=== PATIENT | female | born 1960 | race Two or more races ===

== ENCOUNTER 2020-07-30 23:17 | Emergency (ER) | payer MEDICAID, OTHER ==
[~2020-07-30] VITALS: Ht 162.6 cm; Wt 99.8 kg
[2020-07-30] MEDS ORDERED: KETOROLAC TROMETHAMINE INJ 60 MG/2 ML VIAL IM ONE (23:30)
[2020-07-30] MEDS ORDERED: HYDROMORPHONE 1 MG/1 ML DISP.SYRIN IM ONE (23:30)
--- NOTE | 2020-07-30 23:31 | NUR ---
PATIENT CAME TO ER BED 9 C/O LEFT FOOT PAIN. PATIENT STATES THAT SHE HAS HAD THIS PAIN FOR MONTHS. PATIENT STATES THAT SHE CURRENTLY TAKES NORCO5-MG, BUT IT DOES NOT HELP HER. PATIENT IS ON HOME OXYGEN OF 2L DUE TO HX OF COVID. PATIENT IS AAOX4. NO SOB. BREATHING EVENLY AND UNLABORED ON 2L. CONNECTED TO THE MONITOR.
[2020-07-30] MEDS ORDERED: KETOROLAC TROMETHAMINE INJ 30 MG/ML VIAL ONE (23:36)
[2020-07-30] MEDS ORDERED: HYDROMORPHONE 1 MG/1 ML DISP.SYRIN ONE (23:37)
--- NOTE | 2020-07-31 00:48 | NUR ---
CALLED [facility] #[id number] ETA 3 HOURS.
--- NOTE | 2020-07-31 03:32 | NUR ---
PATIENT IS SLEEPING. EASILY AROUSABLE THROUGH VERBAL STIMULI. PATIENT IS CONNECTED TO THE MONITOR. VSS. SIDE RAILS ARE UP FOR SAFETY. CALL LIGHT IS WITHIN REACH.
--- NOTE | 2020-07-31 04:28 | NUR ---
CALLED [facility], [phone]
--- NOTE | 2020-07-31 08:51 | NUR ---
Patient a/ox4, breathing even and unlabored, no sob noted. Patient discharged to home in stable condition. Written and verbal after care instructions given. Patient verbalizes understanding of instruction. Report given to EMT.
[2020-07-31 09:02] VITALS: BP 124/78
== END 2020-07-31 09:02 | disposition home or self-care (01) ==
LOC: ER 23:19
DX: G89.29 Other chronic pain (principal); M79.672 Pain in left foot; E11.9 Type 2 diabetes mellitus without complications
CPT/HCPCS: 96372 ×2; 99285; J1170; J1885